=== PATIENT | male | born 1985 | race Caucasian/White ===

== ENCOUNTER 2018-09-28 22:12 | Emergency (ER) | payer MEDICAID ==
[2018-09-28 22:38] LABS: BILIRUBIN,URINE NEGATIVE (NEGATIVE); CLARITY,URINE CLEAR (CLEAR); GLUCOSE, URINE (UA) NEGATIVE (NEGATIVE); KETONES,URINE (UA) NEGATIVE (NEGATIVE); LEUKOCYTE ESTERASE, URINE NEGATIVE (NEGATIVE); NITRITE,URINE NEGATIVE (NEGATIVE); OCCULT BLOOD,URINE NEGATIVE (NEGATIVE); PH,URINE 6.5 PH (5.0-7.5); PROTEIN,URINE NEGATIVE (NEGATIVE); UROBILINOGEN,URINE 0.2 (NORMAL) E.U./dL (NORMAL)
[2018-09-28 22:58] LABS: BASOPHILS # (AUTO) 0.1 10^3/uL (0.0-0.1); BASOPHILS % (AUTO) 0.5 %; EOSINOPHILS # (AUTO) 0.3 10^3/uL (0.0-0.7); EOSINOPHILS % (AUTO) 1.8 %; HGB - HEMOGLOBIN 13.6 g/dL (14.0-18.0); LYMPHOCYTES # (AUTO) 1.7 10^3/uL (1.5-3.5); LYMPHOCYTES % (AUTO) 11.5 %; MEAN CORPUSCULAR HEMOGLOBIN 30.6 pg (27.0-31.0); MEAN CORPUSCULAR HGB CONC 32.9 g/dL (32.0-36.0); MEAN CORPUSCULAR VOLUME 92.9 fL (80.0-94.0); MEAN PLATELET VOLUME 8.1 fL (7.4-11.4); MONOCYTES # (AUTO) 1.1 10^3/uL (0.0-1.0); MONOCYTES % (AUTO) 7.3 %; NEUTROPHILS # (AUTO) 11.9 10^3/uL (1.5-6.6); NEUTROPHILS % (AUTO) 78.9 %; PLT - PLATELET COUNT 422 10^3/uL (130-450); RED BLOOD COUNT 4.44 10^6/uL (4.70-6.10); RED CELL DISTRIBUTION WIDTH 12.5 % (12.0-15.0); WHITE BLOOD COUNT 15.1 x10^3/uL (4.8-10.8)
[2018-09-28 23:15] LABS: ALBUMIN/GLOBULIN RATIO 1.3 (1.0-2.2); BILIRUBIN,TOTAL 0.2 mg/dL (0.2-1.0); CALCIUM 8.9 mg/dL (8.5-10.3); CREATININE 0.8 mg/dL (0.6-1.2); TOTAL PROTEIN 7.1 g/dL (6.7-8.2)
--- NOTE | 2018-09-28 23:51 | ED Physician Documentation ---
PD HPI ABD PAIN - Stated complaint Stated Complaint: LWR AB PAIN/CONSTIPATION - Chief complaint Chief Complaint: Abd Pain - History obtained from History obtained from: Patient - History of Present Illness Timing - onset: How many weeks ago (3) Timing - duration: Weeks (3) Timing - details: Gradual onset, Still present, Intermittant (more consistent th e past several days) Quality: Cramping, Aching, Pain Location: LLQ Radiation: Left flank Improved by: BM, Position (feels better on his back. worse on left side.) Worsened by: Moving, Palpation Associated symptoms: No: Fever, Nausea, Vomiting, Diarrhea, Constipation Similar symptoms before: Has not had sx before Recently seen: Not recently seen Review of Systems Constitutional: denies: Fever, Chills, Myalgias Nose: denies: Rhinorrhea / runny nose, Congestion Throat: denies: Sore throat Respiratory: denies: Cough GI: reports: Abdominal Pain. denies: Abdominal Swelling, Nausea, Vomiting, Constipation, Diarrhea : denies: Dysuria, Frequency Skin: denies: Rash PD PAST MEDICAL HISTORY - Past Medical History Past Medical History: No Cardiovascular: None Respiratory: None Neuro: None Endocrine/Autoimmune: None GI: None : None HEENT: None Psych: None Musculoskeletal: None Derm: None - Past Surgical History Past Surgical History: No - Present Medications Home Medications: Ambulatory Orders Medication Instructions Recorded Confirmed Hydrocodone/Acetaminophen [[place] 1 each PO Q6H PRN #15 tablet 09/29/18 5-325 Tablet] Metronidazole [Flagyl] 500 mg PO BID #14 tablet 09/29/18 Naproxen 375 mg PO BID #20 tablet 09/29/18 Sulfamethox/Trimeth 800/160 1 each PO BID #14 tablet 09/29/18 [Bactrim Ds 800/160] - Allergies Allergies/Adverse Reactions: Allergies Allergy/AdvReac Type Severity Reaction Status Date / Time No Known Drug Allergies Allergy Verified 09/28/18 22:22 - Social History Does the pt smoke?: Yes Smoking Status: Current every day smoker Does the pt drink ETOH?: Yes Does the pt have substance abuse?: Yes Substance Use and Type: Marijuana, Other - Immunizations Immunizations are current?: Yes - POLST Patient has POLST: No PD ED PE NORMAL - Vitals Vital signs reviewed: Yes - General General: Alert and oriented X 3, Well developed/nourished - HEENT HEENT: Pharynx benign - Neck Neck: Supple, no meningeal sign, No adenopathy - Cardiac Cardiac: RRR, No murmur - Respiratory Respiratory: Clear bilaterally - Abdomen Abdomen: Normal bowel sounds, Soft, Non distended, No organomegaly, Other (tender LLQ with local guarding and percussion tenderness. ) - Male Male : Deferred - Rectal Rectal: Deferred - Back Back: No CVA TTP - Derm Derm: Normal color, Warm and dry, No rash - Extremities Extremities: Normal ROM s pain Results - Vitals Vitals: Vital Signs - 24 hr 09/28/18 09/28/18 09/29/18 22:20 23:44 01:12 Temperature 36.9 C 36.8 C Heart Rate 97 93 94 Respiratory 16 16 16 Rate Blood Pressure 105/87 H 123/79 115/61 O2 Saturation 99 100 98 09/29/18 02:46 Temperature Heart Rate 71 Respiratory 16 Rate Blood Pressure 110/69 O2 Saturation 99 Oxygen O2 Source Room air - Labs Labs: Laboratory Tests 09/28/18 09/28/18 09/28/18 22:30 22:42 22:42 WBC 15.1 H RBC 4.44 L Hgb 13.6 L Hct 41.3 L MCV 92.9 MCH 30.6 MCHC 32.9 RDW 12.5 Plt Count 422 MPV 8.1 Neut # (Auto) 11.9 H Lymph # (Auto) 1.7 [place] # (Auto) 1.1 H Eos # (Auto) 0.3 Baso # (Auto) 0.1 Absolute Nucleated RBC 0.00 Nucleated RBC % 0.0 Sodium 135 Potassium 3.9 Chloride 100 L Carbon Dioxide 26 Anion Gap 9.0 BUN 10 Creatinine 0.8 Estimated GFR (MDRD) 113 Glucose 97 Calcium 8.9 Total Bilirubin 0.2 AST 14 ALT 17 Alkaline Phosphatase 97 Total Protein 7.1 Albumin 4.0 Globulin 3.1 Albumin/Globulin Ratio 1.3 Lipase 32 Urine Color YELLOW Urine Clarity CLEAR Urine pH 6.5 Ur Specific [place] <=1.005 Urine Protein NEGATIVE Urine Glucose (UA) NEGATIVE Urine Ketones NEGATIVE Urine Occult Blood NEGATIVE Urine Nitrite NEGATIVE Urine Bilirubin NEGATIVE Urine Urobilinogen 0.2 (NORMAL) Ur Leukocyte Esterase NEGATIVE Ur Microscopic Review NOT INDICATED Urine Culture Comments NOT INDICATED - Rads (name of study) abd CT Radiology: Prelim report reviewed (sigmoid diverticulitits. No ureterolithiasis), See rad report PD MEDICAL DECISION MAKING - ED course Complexity details: considered differential (considered kidney stone or diverticulitis. ), d/w patient Departure - Departure Disposition: 01 Home, Self Care Clinical Impression: Acute diverticulitis Abdominal pain Qualifiers: Abdominal location: left lower quadrant Qualified Code(s): R10.32 - Left lower quadrant pain Condition: Stable Record reviewed to determine appropriate education?: Yes Instructions: ED Diverticulitis Prescriptions: Hydrocodone/Acetaminophen [[place] 5-325 Tablet] 1 each PO Q6H PRN #15 tablet PRN Reason: Pain Metronidazole [Flagyl] 500 mg PO BID #14 tablet Naproxen 375 mg PO BID #20 tablet Sulfamethox/Trimeth 800/160 [Bactrim Ds 800/160] 1 each PO BID #14 tablet Comments: Stay well-hydrated. You can continue the MiraLAX or other stool softener daily for the next week or 2. Use anti-inflammatory such as naproxen twice daily. Antibiotics Bactrim and metronidazole twice daily for a week for the infection. Add hydrocodone if needed for pain. Recheck if not improving over the next few days. Forms: Activity restrictions Discharge Date/Time: 09/29/18 02:58
[2018-09-29] MEDS ORDERED: IBUPROFEN 600 MG TABLET PO STA (00:11)
[2018-09-29] MEDS ORDERED: DOCUSATE SODIUM 100 MG CAPSULE PO STA (00:11)
[2018-09-29] MEDS ORDERED: HYDROcod/ACETAM 5/325 MG TABLET PO STA (00:11)
--- NOTE | 2018-09-29 02:19 | CT Report ---
Reason: LLQ abd pain for 2 weeks. Procedure Date: 09/29/2018 Accession Number: [id number] / [id number] Procedure: CT - Abdomen/Pelvis WO CPT Code: FULL RESULT: EXAM: CT ABDOMEN AND PELVIS (CT KUB) EXAM DATE: 09/29/2018 02:11 AM. CLINICAL HISTORY: LLQ abd pain for 2 weeks. COMPARISONS: None. TECHNIQUE: Routine axial helical CT imaging was performed through the abdomen and pelvis without IV contrast. Reconstructions: Coronal and sagittal. In accordance with CT protocol optimization, one or more of the following dose reduction techniques were utilized for this exam: automated exposure control, adjustment of mA and/or KV based on patient size, or use of iterative reconstructive technique. FINDINGS: Lung Bases: Unremarkable. Right Kidney/Ureter: No stones, hydronephrosis, or hydroureter. No perinephric fat stranding. Left Kidney/Ureter: No stones, hydronephrosis, or hydroureter. No perinephric fat stranding. Other Solid Organs: Noncontrast images of the solid organs are grossly unremarkable. Gallbladder/Bile Ducts: Unremarkable. Peritoneal Cavity: There is inflammation around the distal descending and proximal sigmoid colon, with multiple diverticula present, compatible with uncomplicated diverticulitis. No abscess or perforation. Pelvic Organs: No bladder stones or wall thickening. Noncontrast images of the visualized pelvic organs are unremarkable. Vasculature: Unremarkable. Other: None. IMPRESSION: Uncomplicated sigmoid diverticulitis. No evidence of nephrolithiasis. RADIA
[2018-09-29] MEDS ORDERED: metroNIDAZOLE 250 MG TABLET PO STA (02:38)
[2018-09-29] MEDS ORDERED: SULFAMETH/TRIMETH DS 800/160 MG TABLET PO STA (02:38)
[2018-09-29 02:47] VITALS: BP 110/69
== END 2018-09-29 02:58 | disposition home or self-care (01) ==
LOC: ED 22:12
DX: K57.32 Diverticulitis of large intestine without perforation or abscess without bleeding (principal); F17.200 Nicotine dependence, unspecified, uncomplicated
CPT/HCPCS: 36415; 74176; 80053; 81003; 83690; 85025; 99283; 99284; A9270; 81001; 87086

== ENCOUNTER 2019-12-14 02:24 | Emergency (ER) | payer MEDICAID ==
[2019-12-14 02:36] VITALS: BP 122/61
[2019-12-14] MEDS ORDERED: SULFAMETH/TRIMETH DS 800/160 MG TABLET PO STA (03:02)
--- NOTE | 2019-12-14 03:09 | ED Physician Documentation ---
PD HPI SKIN - Stated complaint Stated Complaint: ARM/MCFARLANE BUMP - Chief complaint Chief Complaint: Ext Problem - History obtained from History obtained from: Patient, Family - History of Present Illness Timing - onset: How many days ago (5) Timing - duration: Days (5) Timing - details: Gradual onset, Still present Location: RUE, RLE Quality / character: Painful, Discolored, Raised, Swelling, Draining Associated symptoms: No: Fever, Myalgias, Joint pain, Headache, Facial swelling, Dyspnea, Abd pain, N/V/D, Urinary sx Contributing factors: Insect bite /sting Similar symptoms before: Has not had sx before Recently seen: Not recently seen - Additional information Additional information: 34-year-old male has developed 2 spots one on his right forearm and one on his right ankle that have become swollen and erythematous and have begun to drain pus. He felt that these would improve but they have persisted and he is worried about MRSA.He has not had fever and he relates that the bump on his ankle has drained this evening. Review of Systems Constitutional: denies: Fever Eyes: denies: Decreased vision Ears: denies: Ear pain Nose: denies: Congestion Throat: denies: Sore throat Cardiac: denies: Chest pain / pressure Respiratory: denies: Dyspnea, Cough GI: denies: Abdominal Pain, Nausea, Vomiting : denies: Dysuria Skin: reports: Lesions, Bite / sting Musculoskeletal: reports: Extremity pain. denies: Neck pain, Back pain PD PAST MEDICAL HISTORY - Past Medical History Past Medical History: No Cardiovascular: None Respiratory: None Neuro: None Endocrine/Autoimmune: None GI: None : None HEENT: None Psych: None Musculoskeletal: None Derm: None - Past Surgical History Past Surgical History: No - Present Medications Home Medications: Ambulatory Orders Medication Instructions Recorded Confirmed Hydrocodone/Acetaminophen [[place] 1 each PO Q6H PRN #15 tablet 09/29/18 5-325 Tablet] Naproxen 375 mg PO BID #20 tablet 09/29/18 Sulfamethox/Trimeth 800/160 1 each PO BID #14 tablet 09/29/18 [Bactrim Ds 800/160] metroNIDAZOLE [Flagyl] 500 mg PO BID #14 tablet 09/29/18 Sulfamethoxazole/Trimethoprim 1 each PO BID #14 tablet 12/14/19 [Sulfamethoxazole-Tmp Ds Tablet] - Allergies Allergies/Adverse Reactions: Allergies Allergy/AdvReac Type Severity Reaction Status Date / Time No Known Drug Allergies Allergy Verified 12/14/19 02:36 - Social History Does the pt smoke?: Yes Smoking Status: Current every day smoker Does the pt drink ETOH?: Yes Does the pt have substance abuse?: Yes - Immunizations Immunizations are current?: Yes - POLST Patient has POLST: No PD ED PE NORMAL - Vitals Vital signs reviewed: Yes (Normal) - General General: Alert and oriented X 3, No acute distress, Well developed/nourished - HEENT HEENT: Atraumatic, PERRL, EOMI - Respiratory Respiratory: No respiratory distress - Derm Derm: Normal color, Warm and dry, No rash - Extremities Extremities: Other (On the right anterior calf there is a erythematous raised mass that is firm and without fluctuance there is a central area of recent drainage and there is no significant surrounding erythema. The size of the boil is about 3 cm round. 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 PD MEDICAL DECISION MAKING - ED course Complexity details: reviewed results, re-evaluated patient, considered differential, d/w patient, d/w family ED course: 34-year-old male with abscess to the forearm and mcfarlane does not have drainable fluid collections. He is instructed use a warm compress 3-4 times per day and expect ripening over the next 2 days. He is placed on to Septra DS. Is instructed to encourage any drainage that does occur. He is given a note for work for 2 days. I have indicated to the patient it will likely be that he will have to return to the emergency department for incision and drainage Departure - Departure Disposition: 01 Home, Self Care Clinical Impression: Abscess Condition: Stable Instructions: ED Staph Infec Abx Tx Only Follow-Up: [facility] [Provider Group] Prescriptions: Sulfamethoxazole/Trimethoprim [Sulfamethoxazole-Tmp Ds Tablet] 1 each PO BID #14 tablet Comments: Use a warm compress 3-4 times per day to encourage blood supply to the area. The abscesses may "ripen" over the next 2 days and a return will be necessary for incision and drainage. The area may become "fluctuant" or feel like there is a fluid collection under the skin and this will require drainage. Forms: Activity restrictions Discharge Date/Time: 12/14/19 03:20
== END 2019-12-14 03:20 | disposition home or self-care (01) ==
LOC: ED 02:24
DX: L02.413 Cutaneous abscess of right upper limb (principal); L02.415 Cutaneous abscess of right lower limb; F17.200 Nicotine dependence, unspecified, uncomplicated
CPT/HCPCS: 99282; 99284; A9270

== ENCOUNTER 2019-12-18 19:55 | Emergency (ER) | payer MEDICAID ==
[2019-12-18 20:03] VITALS: BP 142/74
[2019-12-18] MEDS ORDERED: LIDOCAINE 2%-EPI 1:100000 20 ML MDV SUBQ STA (20:13)
--- NOTE | 2019-12-18 20:15 | ED Physician Documentation ---
History of Present Illness - Stated complaint Stated Complaint: RT WRIST/LEG WOUND - Chief complaint Chief Complaint: Wound - History obtained from History obtained from: Patient - History of Present Illness Timing: How many weeks ago (1) Pain level max: 6 Pain level now: 6 - Additonal information Additional information: 34-year-old male with an abscess to the right forearm and an abscess to the right ankle. He is unsure how he got these. He states his girlfriend has been treated for staph infection as well. He was started on Bactrim here 2 days ago, he states that the areas are still red and swollen. No fevers. No drainage. Worse with palpation, better with rest. Tetanus is up-to-date. No IVDA Review of Systems Ten Systems: 10 systems reviewed and negative Constitutional: denies: Fever, Chills Throat: denies: Sore throat Cardiac: denies: Chest pain / pressure Respiratory: denies: Cough GI: denies: Nausea, Vomiting, Diarrhea : denies: Dysuria Skin: denies: Rash Musculoskeletal: denies: Neck pain, Back pain Neurologic: denies: Headache PD PAST MEDICAL HISTORY - Past Medical History Past Medical History: No Cardiovascular: None Respiratory: None Neuro: None Endocrine/Autoimmune: None GI: None : None HEENT: None Psych: None Musculoskeletal: None Derm: None - Past Surgical History Past Surgical History: No - Present Medications Home Medications: Ambulatory Orders Medication Instructions Recorded Confirmed Hydrocodone/Acetaminophen [[place] 1 each PO Q6H PRN #15 tablet 09/29/18 5-325 Tablet] Naproxen 375 mg PO BID #20 tablet 09/29/18 Sulfamethox/Trimeth 800/160 1 each PO BID #14 tablet 09/29/18 [Bactrim Ds 800/160] metroNIDAZOLE [Flagyl] 500 mg PO BID #14 tablet 09/29/18 Sulfamethoxazole/Trimethoprim 1 each PO BID #14 tablet 12/14/19 [Sulfamethoxazole-Tmp Ds Tablet] Cephalexin [Keflex] 500 mg PO Q6H #28 capsule 12/18/19 - Allergies Allergies/Adverse Reactions: Allergies Allergy/AdvReac Type Severity Reaction Status Date / Time No Known Drug Allergies Allergy Verified 12/14/19 02:36 - Social History Does the pt smoke?: Yes Smoking Status: Current every day smoker Does the pt drink ETOH?: Yes Does the pt have substance abuse?: Yes - Immunizations Immunizations are current?: Yes - POLST Patient has POLST: No PD ED PE NORMAL - Vitals Vital signs reviewed: Yes - General General: Alert and oriented X 3, No acute distress - HEENT HEENT: Moist mucous membranes - Neck Neck: Supple, no meningeal sign - Cardiac Cardiac: RRR - Respiratory Respiratory: No respiratory distress, Clear bilaterally - Derm Derm: Warm and dry - Extremities Extremities: Other (3x3cm abscess to the R forearm, volar aspect. 2x2 cm abscess to the R ankle with 3x3cm surrounding erythema. ) - Neuro Neuro: Alert and oriented X 3 - Psych Psych: Normal mood, Normal affect Results - Vitals Vitals: Vital Signs - 24 hr 12/18/19 20:02 Temperature 36.6 C Heart Rate 105 H Respiratory 18 Rate Blood Pressure 142/74 H O2 Saturation 98 Oxygen O2 Source Room air Procedures - Abscess I&D (location) R wrist Preparation: Chlorhexadine, Lidocaine 2 %, With epi Incision: Incised with scalpel, Purulent drainage, Packed, Culture obtained Other: Pt tolerated well, Dressing applied, Antibiotic prescribed R ankle Preparation: Chlorhexadine, Lidocaine 2 %, With epi Incision: Incised with scalpel, Purulent drainage, Loculations broken, Packed, Culture obtained Other: Pt tolerated well PD MEDICAL DECISION MAKING - ED course Complexity details: reviewed results, re-evaluated patient, considered differential, d/w patient ED course: 2 abscesses were incised and drained today. Tolerated well. We will place on Bactrim and Keflex for home. He Fan has a prescription for Bactrim. Wound culture sent. He is well-appearing, nontoxic. Afebrile. Warnings of infection and instructions on wound care given at bedside. Also counseled on how to minimize scarring. Patient counseled regarding signs and symptoms for which I believe and urgent re-evaluation would be necessary. Patient with good understanding of and agreement to plan and is comfortable going home at this time This document was made in part using voice recognition software. While efforts are made to proofread this document, sound alike and grammatical errors may occur. Departure - Departure Disposition: 01 Home, Self Care Clinical Impression: Abscess Condition: Good Instructions: ED Abscess IandD Follow-Up: your,doctor or here in 2 days [Other] Prescriptions: Cephalexin [Keflex] 500 mg PO Q6H #28 capsule Comments: Follow-up with your doctor or return here in 2 days for a wound check. Return sooner if you worsen. The packing should be removed at that time if it has not fallen out. These do not need to be repacked. Continue the Bactrim and add the Keflex. Forms: Activity restrictions Discharge Date/Time: 12/18/19 20:47
== END 2019-12-18 20:47 | disposition home or self-care (01) ==
LOC: ED 19:55
DX: L02.413 Cutaneous abscess of right upper limb (principal); L02.415 Cutaneous abscess of right lower limb; F17.200 Nicotine dependence, unspecified, uncomplicated
CPT/HCPCS: 10061; 87070; 87181; 87205

== ENCOUNTER 2022-02-14 20:08 | Emergency (ER) | payer MEDICAID ==
[2022-02-14] MEDS ORDERED: TETANUS/DIPHTHERIA/PERTUSSIS 0.5 ML SYRINGE IM ONE (22:24)
[2022-02-14 23:26] VITALS: BP 123/76
[2022-02-15] MEDS ORDERED: cephALEXin 250 MG CAPSULE PO STA (00:17)
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
== END 2022-02-15 00:30 | disposition home or self-care (01) ==
LOC: ED 20:08
DX: S62.635A Displaced fracture of distal phalanx of left ring finger, initial encounter for closed fracture (principal); V48.0XXA Car driver injured in noncollision transport accident in nontraffic accident, initial encounter; F17.200 Nicotine dependence, unspecified, uncomplicated; Z23 Encounter for immunization; Z71.85 Encounter for immunization safety counseling
CPT/HCPCS: 71045; 73130; 90471; 90715; 99284; A9270